=== PATIENT | female | born 1930 | race Caucasian/White ===

== ENCOUNTER 2020-09-17 16:17 | Inpatient (IN) | payer OTHER ==
[~2020-09-17] VITALS: Ht 167.6 cm; Wt 63.5 kg
[2020-09-17] MEDS ORDERED: AZITHROMYCIN IV 500 MG in IV DEXTROSE 5% 250 ML IV ONE (17:15)
[2020-09-17] MEDS ORDERED: CEFTRIAXONE 1 G in IV DEXTROSE 5% 50 ML IV ONE (17:15)
[2020-09-17] MEDS ORDERED: CEFTRIAXONE /D5W 50ML IVPB **ER PYXIS IV ONE (17:34)
[2020-09-17] MEDS ORDERED: AZITHROMYCIN 500MG/ D5W 250ML IVPB **ER PYXIS ONLY IV ONE (17:34)
[2020-09-17 17:36] LABS: BASOPHILS # (AUTO) 0.1 K/uL (0.0-8.0); BASOPHILS % (AUTO) 1.1 % (0.0-2.0); HEMOGLOBIN 12.3 g/dL (10.9-14.3); LYMPHOCYTES # (AUTO) 0.3 K/uL (20.0-40.0); MEAN CORPUSCULAR HEMOGLOBIN 27.9 uug (24.7-32.8); MEAN CORPUSCULAR HGB CONC 33 g/dL (32.3-35.6); MEAN CORPUSCULAR VOLUME 84.1 fL (75.5-95.3); MONOCYTES # (AUTO) 0.3 K/uL (2.0-10.0); MONOCYTES % (AUTO) 4.9 % (0.0-11.0); NEUTROPHILS # (AUTO) 4.7 K/uL (1.8-8.9); PLATELET COUNT (AUTO) 211 K/uL (179-408); WHITE BLOOD COUNT (AUTO) 5.3 K/uL (3.8-11.8)
[2020-09-17 17:39] LABS: CREATININE 0.9 mg/dL (0.6-1.3); POTASSIUM 4.4 mmol/L (3.5-5.1)
[2020-09-17 17:56] LABS: BILIRUBIN,TOTAL 0.3 mg/dL (0.2-1.0); TOTAL PROTEIN, SERUM 6.8 g/dL (6.4-8.2)
[2020-09-17] MEDS ORDERED: ENOXAPARIN SODIUM 30 MG/0.3 ML DISP.SYRIN SUBCUT ONE (18:15)
[2020-09-17] MEDS ORDERED: DEXAMETHASONE SOD PHOSPHATE 4 MG INJ IV ONE (18:15)
[2020-09-17] MEDS ORDERED: ENOXAPARIN SODIUM 40 MG/0.4 ML DISP.SYRIN SQ ONE ×2 (18:15→19:45)
[2020-09-17] MEDS ORDERED: ENOXAPARIN SODIUM 60 MG/0.6 ML DISP.SYRIN SQ ONE (18:24)
[2020-09-17] MEDS ORDERED: DEXAMETHASONE SOD PHOSPHATE 10 MG INJ ONE (18:28)
[2020-09-17] MEDS ORDERED: ACETAMINOPHEN 325 MG TABLET PO PRN (19:45)
[2020-09-17] MEDS: AZITHROMYCIN IV 500 MG in IV DEXTROSE 5% 250 ML IV SCH (19:45)
[2020-09-17] MEDS ORDERED: ONDANSETRON 4 MG/2 ML VIAL IV PRN (19:45)
[2020-09-17] MEDS ORDERED: ALBUTEROL SULFATE 2.5 MG/ 0.5 ML NEBU NEB PRN (19:45)
--- NOTE | 2020-09-17 21:40 | NUR ---
Pt pulled out her saline lock from L[facility], new saline started to RFA.
--- NOTE | 2020-09-17 23:48 | NUR ---
Patient transfered to 3rd floor Tele via gurny with no distress noted.
[2020-09-18] MEDS: ASCORBIC ACID 500 MG TABLET PO SCH ×3 (00:15→22:06)
--- NOTE | 2020-09-18 00:15 | NUR ---
Patient brought to tele via gurchristian from ER accompanied by staff nurse with d/x of covid.Patient alert x1. confused. Re-oriented to time ,place and unit.O2 at 4LPM via NC.Denies pain .No s/s of distress noted at this time. Iv on right forearm 22 g patent and intact.PAtient ambulates to bathroom with assist.Voided well. Placed on isolation .Call light with in reach. Safeyt measures in place.will continue to monitor.
[2020-09-18] MEDS: TEMAZEPAM 15 MG CAPSULE PO PRN (00:42)
[2020-09-18 01:22] VITALS: BP 154/85
[2020-09-18 06:22] VITALS: BP 140/65
[2020-09-18] MEDS: PANTOPRAZOLE SODIUM 40 MG TABLET.DR PO SCH (06:41)
[2020-09-18 07:07] LABS: BASOPHILS % (AUTO) 0.2 % (0.0-2.0); HEMATOCRIT 32.1 % (31.2-41.9); HEMOGLOBIN 10.7 g/dL (10.9-14.3); LYMPHOCYTES # (AUTO) 0.3 K/uL (20.0-40.0); LYMPHOCYTES % (AUTO) 16.1 % (20.5-51.5); MEAN CORPUSCULAR HEMOGLOBIN 28.3 uug (24.7-32.8); MEAN CORPUSCULAR HGB CONC 33 g/dL (32.3-35.6); MEAN CORPUSCULAR VOLUME 84.7 fL (75.5-95.3); MONOCYTES # (AUTO) 0.2 K/uL (2.0-10.0); MONOCYTES % (AUTO) 10.5 % (0.0-11.0); NEUTROPHILS # (AUTO) 1.4 K/uL (1.8-8.9); NEUTROPHILS % (AUTO) 73.2 % (38.5-71.5); PLATELET COUNT (AUTO) 207 K/uL (179-408)
[2020-09-18 07:26] LABS: THYROID STIMULATING HORMONE 0.25 mIU/mL (0.358-3.740)
[2020-09-18 07:48] LABS: BILIRUBIN,TOTAL 0.2 mg/dL (0.2-1.0); CREATININE 0.9 mg/dL (0.6-1.3); MAGNESIUM 1.8 mg/dL (1.8-2.4); PHOSPHOROUS 4.2 mg/dL (2.5-4.9); POTASSIUM 4.3 mmol/L (3.5-5.1); TOTAL PROTEIN, SERUM 6.7 g/dL (6.4-8.2)
[2020-09-18 08:26] LABS: WHITE BLOOD COUNT (AUTO) 1.9 K/uL (3.8-11.8)
[2020-09-18] MEDS: CHOLECALCIFEROL 1,000 UNIT TABLET PO SCH (08:51)
[2020-09-18] MEDS: DEXAMETHASONE SOD PHOSPHATE 4 MG INJ IV SCH (08:52)
[2020-09-18] MEDS ORDERED: ASPIRIN EC 325 MG TABLET.DR PO SCH (09:00)
[2020-09-18 12:00] VITALS: BP 137/72
--- NOTE | 2020-09-18 13:00 | NUR ---
SPOKE WITH DAUGHTER ESTRELLITA. RECEIVED LIST OF PATIENT'S HOME MEDICATION FROM DAUGHTER. NOTIFIED.
[2020-09-18] MEDS ORDERED: MIRT-119 PO (13:11)
[2020-09-18] MEDS ORDERED: POTA-10 PO (13:11)
[2020-09-18] MEDS ORDERED: MELA5TAB PO (13:11)
[2020-09-18] MEDS ORDERED: OMEP20CA15 PO (13:11)
[2020-09-18] MEDS ORDERED: ASPI81TA31 PO (13:11)
[2020-09-18] MEDS ORDERED: FLUD0.1T PO (13:11)
[2020-09-18] MEDS ORDERED: CARB-93 PO (13:11)
[2020-09-18] MEDS: ENOXAPARIN SODIUM 30 MG/0.3 ML DISP.SYRIN SUBCUT SCH (13:23)
[2020-09-18 16:00] VITALS: BP 128/47
[2020-09-18] MEDS: POTASSIUM CHLORIDE 10 MEQ TAB.PRT.SR PO SCH (16:35)
[2020-09-18] MEDS: CARBIDOPA/LEVODOPA 25-100MG TABLET PO SCH ×2 (16:35→22:06)
[2020-09-18] MEDS: CLOTRIMAZOLE 10 MG TROCHE MM SCH ×2 (18:01→21:00)
[2020-09-18] MEDS ORDERED: REMDESIVIR (CHARGED) 200 MG in IV NORMAL SALINE 210 ML IV ONE (18:30)
--- NOTE | 2020-09-18 19:30 | NUR ---
Pt received in bed, resting. Is confused but is able to be reoriented. Denies pain at this time. On 4L and denies SOB. No other issues or concerns at this time.
--- NOTE | 2020-09-18 19:38 | NUR ---
CALLED PHARMACY AT 1730 FOR 1830 REMDESIVIR, FOLLOWED UP AT 1830 - STILL NOT AVAILABLE. ENDORSED TO PM NURSE
[2020-09-18] MEDS: AZITHROMYCIN IV 500 MG in IV DEXTROSE 5% 250 ML IV SCH (19:45)
[2020-09-18 20:22] VITALS: BP 149/62
[2020-09-18] MEDS: MIRTAZAPINE 15 MG TABLET PO SCH (22:05)
[2020-09-18] MEDS: DOCUSATE SODIUM 100 MG CAPSULE PO SCH (22:05)
[2020-09-18] MEDS: FERROUS SULFATE 325 MG TABEC PO SCH (22:06)
[2020-09-18 22:30] LABS: LYMPHOCYTES % (MANUAL) 20 % (20-40); MONOCYTES % (MANUAL) 10 % (2-10); NEUTROPHILS % (MANUAL) 70 % (42-75)
[2020-09-19] MEDS: HYDROCODONE/APAP 5-325MG TABLET PO PRN ×2 (00:18→12:18)
[2020-09-19 01:05] VITALS: BP 140/68
[2020-09-19 04:40] VITALS: BP 148/61
[2020-09-19] MEDS: PANTOPRAZOLE SODIUM 40 MG TABLET.DR PO SCH (06:02)
--- NOTE | 2020-09-19 06:52 | NUR ---
Pt slept intermittently throughout the night. Denies pain or SOB at this time. On 4L NC sating at 96%. Is confused but able to be reoriented. Tolerated all medications given. No other needs or concerns at this time. Will endorse to day shift.
[2020-09-19] MEDS: FLUDROCORTISONE ACETATE 0.1 MG TABLET PO SCH (08:52)
[2020-09-19] MEDS: POTASSIUM CHLORIDE 10 MEQ TAB.PRT.SR PO SCH ×2 (08:53→17:07)
[2020-09-19] MEDS: CLOTRIMAZOLE 10 MG TROCHE MM SCH ×4 (08:53→21:49)
[2020-09-19] MEDS: ASPIRIN 81 MG TAB.CHEW PO SCH (08:53)
[2020-09-19] MEDS: CHOLECALCIFEROL 1,000 UNIT TABLET PO SCH (08:53)
[2020-09-19] MEDS: CARBIDOPA/LEVODOPA 25-100MG TABLET PO SCH ×4 (08:53→21:46)
[2020-09-19] MEDS: ASCORBIC ACID 500 MG TABLET PO SCH ×2 (08:53→21:45)
[2020-09-19] MEDS: FERROUS SULFATE 325 MG TABEC PO SCH ×2 (08:53→21:45)
[2020-09-19] MEDS: DEXAMETHASONE SOD PHOSPHATE 4 MG INJ IV SCH (08:53)
[2020-09-19] MEDS ORDERED: Medication Not On Formulary EA (Omeprazole 20 MG) PO SCH (09:00)
[2020-09-19 09:03] VITALS: BP 146/74
[2020-09-19 09:27] LABS: BASOPHILS % (AUTO) 0.1 % (0.0-2.0); HEMATOCRIT 33.8 % (31.2-41.9); HEMOGLOBIN 11.4 g/dL (10.9-14.3); LYMPHOCYTES # (AUTO) 0.7 K/uL (20.0-40.0); MEAN CORPUSCULAR HEMOGLOBIN 27.8 uug (24.7-32.8); MEAN CORPUSCULAR HGB CONC 34 g/dL (32.3-35.6); MEAN CORPUSCULAR VOLUME 82.2 fL (75.5-95.3); MONOCYTES # (AUTO) 0.7 K/uL (2.0-10.0); NEUTROPHILS # (AUTO) 4.7 K/uL (1.8-8.9); NEUTROPHILS % (AUTO) 76.9 % (38.5-71.5); PLATELET COUNT (AUTO) 269 K/uL (179-408); RED BLOOD CELL COUNT(AUTO) 4.11 MIL/uL (3.63-4.92); WHITE BLOOD COUNT (AUTO) 6.1 K/uL (3.8-11.8)
[2020-09-19 09:30] LABS: BILIRUBIN,DIRECT 0.1 mg/dL (0.0-0.2); BILIRUBIN,TOTAL 0.3 mg/dL (0.2-1.0); POTASSIUM 3.9 mmol/L (3.5-5.1); TOTAL PROTEIN, SERUM 6.9 g/dL (6.4-8.2)
[2020-09-19 11:59] VITALS: BP 114/56
[2020-09-19] MEDS: ENOXAPARIN SODIUM 30 MG/0.3 ML DISP.SYRIN SUBCUT SCH (12:18)
--- NOTE | 2020-09-19 12:30 | NUR ---
NOTED FACIAL GRIMACING AND PATIENT VERBALIZED THAT HER "SHOULDER HURTS." REPOSITIONED PATIENT AND FOLLOWED UP ON PATIENT PAIN. FACIAL GRIMACING STILL PRESENT AND WITHDRAWING FROM TOUCH. GIVEN PRN PAIN MEDICATION PRESCRIBED.
[2020-09-19 16:37] VITALS: BP 125/80
[2020-09-19] MEDS: REMDESIVIR (CHARGED) 100 MG in IV NORMAL SALINE 230 ML IV SCH (17:48)
--- NOTE | 2020-09-19 18:23 | NUR ---
PATIENT TOLERATING REMDESIVIR. BP 129/76, HR 83. WILL CONTINUE TO MONITOR. NO S/S OF SOB NOTED AT THIS TIME.
[2020-09-19] MEDS: CEFTRIAXONE 1 G in IV DEXTROSE 5% 50 ML IV SCH (19:18)
[2020-09-19 20:00] VITALS: BP 122/83
--- NOTE | 2020-09-19 20:00 | NUR ---
NSG: Received patient lying in bed, resting. patient is confused reoriented provided. Denies pain at this time. On 4L/min and denies SOB. call light w/in reach.
[2020-09-19] MEDS: AZITHROMYCIN IV 500 MG in IV DEXTROSE 5% 250 ML IV SCH (20:54)
[2020-09-19] MEDS: DOCUSATE SODIUM 100 MG CAPSULE PO SCH (21:45)
[2020-09-19] MEDS: MIRTAZAPINE 15 MG TABLET PO SCH (21:50)
[2020-09-20] VITALS: BP 148/70
--- NOTE | 2020-09-20 02:48 | NUR ---
patient converted to a-fib heart rate 110 to 120. METER READER CHIEF QUIRINO MEDINA MADE AWARE. no new order received.
[2020-09-20] MEDS: HYDROCODONE/APAP 5-325MG TABLET PO PRN ×3 (03:26→16:54)
[2020-09-20 04:00] VITALS: BP 144/81
--- NOTE | 2020-09-20 04:37 | NUR ---
patient is still on controlled A-FIB. heart rate 77 to 80. no s/s of distress noted.
--- NOTE | 2020-09-20 05:12 | NUR ---
NSG: Patient resting in bed comfortably. no s/s of distress noted.
[2020-09-20] MEDS: PANTOPRAZOLE SODIUM 40 MG TABLET.DR PO SCH (06:07)
[2020-09-20] MEDS: CARBIDOPA/LEVODOPA 25-100MG TABLET PO SCH ×4 (08:25→20:36)
[2020-09-20] MEDS: ASPIRIN 81 MG TAB.CHEW PO SCH (08:25)
[2020-09-20] MEDS: DEXAMETHASONE SOD PHOSPHATE 4 MG INJ IV SCH (08:25)
[2020-09-20] MEDS: CHOLECALCIFEROL 1,000 UNIT TABLET PO SCH (08:25)
[2020-09-20] MEDS: ASCORBIC ACID 500 MG TABLET PO SCH ×2 (08:25→20:36)
[2020-09-20] MEDS: FERROUS SULFATE 325 MG TABEC PO SCH ×2 (08:25→20:36)
[2020-09-20] MEDS: FLUDROCORTISONE ACETATE 0.1 MG TABLET PO SCH (08:26)
[2020-09-20] MEDS: POTASSIUM CHLORIDE 10 MEQ TAB.PRT.SR PO SCH ×2 (08:26→16:53)
[2020-09-20] MEDS: CLOTRIMAZOLE 10 MG TROCHE MM SCH ×4 (08:27→20:37)
[2020-09-20 08:42] LABS: BILIRUBIN,DIRECT 0.1 mg/dL (0.0-0.2); BILIRUBIN,TOTAL 0.3 mg/dL (0.2-1.0); TOTAL PROTEIN, SERUM 7.1 g/dL (6.4-8.2)
[2020-09-20 11:27] VITALS: BP 164/94
[2020-09-20] MEDS: ENOXAPARIN SODIUM 30 MG/0.3 ML DISP.SYRIN SUBCUT SCH (12:20)
[2020-09-20 13:22] LABS: CREATININE 0.8 mg/dL (0.6-1.3); POTASSIUM 3.5 mmol/L (3.5-5.1)
[2020-09-20] MEDS: LORAZEPAM 2 MG/1 ML VIAL IV PRN (13:28)
[2020-09-20 13:42] LABS: BASOPHILS % (AUTO) 0.1 % (0.0-2.0); HEMATOCRIT 38.5 % (31.2-41.9); HEMOGLOBIN 12.5 g/dL (10.9-14.3); LYMPHOCYTES # (AUTO) 0.8 K/uL (20.0-40.0); LYMPHOCYTES % (AUTO) 15.1 % (20.5-51.5); MEAN CORPUSCULAR HEMOGLOBIN 27.4 uug (24.7-32.8); MEAN CORPUSCULAR HGB CONC 33 g/dL (32.3-35.6); MEAN CORPUSCULAR VOLUME 84.4 fL (75.5-95.3); MONOCYTES # (AUTO) 0.9 K/uL (2.0-10.0); MONOCYTES % (AUTO) 17.6 % (0.0-11.0); NEUTROPHILS # (AUTO) 3.4 K/uL (1.8-8.9); NEUTROPHILS % (AUTO) 67.2 % (38.5-71.5); PLATELET COUNT (AUTO) 304 K/uL (179-408); RED BLOOD CELL COUNT(AUTO) 4.56 MIL/uL (3.63-4.92)
[2020-09-20 16:00] VITALS: BP 112/69
[2020-09-20] MEDS: CEFTRIAXONE 1 G in IV DEXTROSE 5% 50 ML IV SCH (16:09)
[2020-09-20] MEDS: AZITHROMYCIN IV 500 MG in IV DEXTROSE 5% 250 ML IV SCH (16:10)
[2020-09-20 18:17] LABS: LYMPHOCYTES % (MANUAL) 14 % (20-40); MONOCYTES % (MANUAL) 17 % (2-10); NEUTROPHILS % (MANUAL) 69 % (42-75)
[2020-09-20 20:00] VITALS: BP 111/71
[2020-09-20] MEDS: REMDESIVIR (CHARGED) 100 MG in IV NORMAL SALINE 230 ML IV SCH (20:36)
[2020-09-20] MEDS: DOCUSATE SODIUM 100 MG CAPSULE PO SCH (20:37)
[2020-09-20] MEDS: MIRTAZAPINE 15 MG TABLET PO SCH (20:37)
--- NOTE | 2020-09-20 21:00 | NUR ---
Received patient sleeping. patient is very confused, needs reorientation. Denies any pain at this time. On 3L/min and no SOB noted. All due medication administered and tolerated well. Spoke to daughter Patti, pdated on pt status. Safety measure in place. Will continue to monitor. Call light w/in reach.
[2020-09-21 00:44] VITALS: BP 119/87
[2020-09-21 04:00] VITALS: BP 129/72
[2020-09-21] MEDS: PANTOPRAZOLE SODIUM 40 MG TABLET.DR PO SCH (05:38)
--- NOTE | 2020-09-21 06:50 | NUR ---
pt increasing agitated this morning keeps removing clothing and Leads. Needs reorientation. Kept comfortable repositioned and noticeable calmer. will endorse to oncoming nurse.
[2020-09-21 08:06] LABS: BASOPHILS % (AUTO) 0.1 % (0.0-2.0); HEMATOCRIT 38.3 % (31.2-41.9); HEMOGLOBIN 13.4 g/dL (10.9-14.3); LYMPHOCYTES # (AUTO) 0.8 K/uL (20.0-40.0); LYMPHOCYTES % (AUTO) 20.1 % (20.5-51.5); MEAN CORPUSCULAR HEMOGLOBIN 29.1 uug (24.7-32.8); MEAN CORPUSCULAR HGB CONC 35 g/dL (32.3-35.6); MONOCYTES # (AUTO) 0.8 K/uL (2.0-10.0); MONOCYTES % (AUTO) 19.2 % (0.0-11.0); NEUTROPHILS # (AUTO) 2.5 K/uL (1.8-8.9); NEUTROPHILS % (AUTO) 60.6 % (38.5-71.5); PLATELET COUNT (AUTO) 346 K/uL (179-408); RED BLOOD CELL COUNT(AUTO) 4.61 MIL/uL (3.63-4.92); WHITE BLOOD COUNT (AUTO) 4.2 K/uL (3.8-11.8)
[2020-09-21 08:07] LABS: BILIRUBIN,DIRECT 0.1 mg/dL (0.0-0.2); BILIRUBIN,TOTAL 0.3 mg/dL (0.2-1.0); CREATININE 0.9 mg/dL (0.6-1.3); MAGNESIUM 1.7 mg/dL (1.8-2.4); PHOSPHOROUS 2.4 mg/dL (2.5-4.9); POTASSIUM 3.3 mmol/L (3.5-5.1)
[2020-09-21] MEDS: DEXAMETHASONE SOD PHOSPHATE 4 MG INJ IV SCH (10:07)
[2020-09-21] MEDS: ASCORBIC ACID 500 MG TABLET PO SCH ×2 (10:09→20:42)
[2020-09-21] MEDS: CHOLECALCIFEROL 1,000 UNIT TABLET PO SCH (10:09)
[2020-09-21] MEDS: ASPIRIN 81 MG TAB.CHEW PO SCH (10:10)
[2020-09-21] MEDS: FLUDROCORTISONE ACETATE 0.1 MG TABLET PO SCH (10:10)
[2020-09-21] MEDS: FERROUS SULFATE 325 MG TABEC PO SCH ×2 (10:10→20:41)
[2020-09-21] MEDS: POTASSIUM CHLORIDE 10 MEQ TAB.PRT.SR PO SCH ×2 (10:10→18:15)
[2020-09-21] MEDS: CARBIDOPA/LEVODOPA 25-100MG TABLET PO SCH ×4 (10:10→20:41)
[2020-09-21] MEDS: CLOTRIMAZOLE 10 MG TROCHE MM SCH ×4 (10:12→20:45)
[2020-09-21] MEDS ORDERED: POTASSIUM CHLORIDE 20 MEQ TAB.PRT.SR PO ONE (11:00)
[2020-09-21 11:55] VITALS: BP 139/71
[2020-09-21] MEDS ORDERED: NEUTRA PHOS PACKET PO ONE (12:00)
[2020-09-21] MEDS: LORAZEPAM 2 MG/1 ML VIAL IV PRN ×2 (13:33→13:36)
[2020-09-21] MEDS: ENOXAPARIN SODIUM 30 MG/0.3 ML DISP.SYRIN SUBCUT SCH (13:47)
[2020-09-21] MEDS: MAGNESIUM SULFATE/D5W 100 ML IV SCH ×2 (13:48→15:07)
[2020-09-21 14:43] LABS: LYMPHOCYTES % (MANUAL) 20 % (20-40); MONOCYTES % (MANUAL) 19 % (2-10); NEUTROPHILS % (MANUAL) 61 % (42-75)
[2020-09-21] MEDS: HYDROCODONE/APAP 5-325MG TABLET PO PRN (14:53)
[2020-09-21 15:47] VITALS: BP 106/75
[2020-09-21] MEDS: AZITHROMYCIN IV 500 MG in IV DEXTROSE 5% 250 ML IV SCH (17:52)
[2020-09-21] MEDS: CEFTRIAXONE 1 G in IV DEXTROSE 5% 50 ML IV SCH (17:52)
[2020-09-21 20:18] VITALS: BP 141/86
[2020-09-21] MEDS: REMDESIVIR (CHARGED) 100 MG in IV NORMAL SALINE 230 ML IV SCH (20:41)
[2020-09-21] MEDS: MIRTAZAPINE 15 MG TABLET PO SCH (20:42)
[2020-09-21] MEDS: DOCUSATE SODIUM 100 MG CAPSULE PO SCH (20:42)
[2020-09-21] MEDS: TEMAZEPAM 15 MG CAPSULE PO PRN (22:21)
--- NOTE | 2020-09-21 23:33 | NUR ---
Restoril effective, pt sleeping, no distress noted. Will continue to monitor.
--- NOTE | 2020-09-21 23:34 | NUR ---
Received patient lying in bed awake, agitation noted. Axox2 confused, needs reorientation., talking to her self. Denies any pain at this time. On 3L/min and no SOB noted. All due medication administered and tolerated well. Administered Restoril to help pt sleep. Spoke to family, updated on pt status. Safety measure in place. All need attended too, kept clean, dry and comfortable. Will continue to monitor. Call light within reach. Addendum: 09/21/20 at 4327 by NYLA MATTHEWS RN RN [id number]
[2020-09-22] VITALS (8 sets, daily range): BP systolic 96–158; BP diastolic 51–99
[2020-09-22] MEDS: PANTOPRAZOLE SODIUM 40 MG TABLET.DR PO SCH (06:48)
[2020-09-22 07:14] LABS: BILIRUBIN,DIRECT 0.1 mg/dL (0.0-0.2); BILIRUBIN,TOTAL 0.3 mg/dL (0.2-1.0); CREATININE 0.8 mg/dL (0.6-1.3); MAGNESIUM 1.9 mg/dL (1.8-2.4); PHOSPHOROUS 2.5 mg/dL (2.5-4.9); POTASSIUM 3.3 mmol/L (3.5-5.1); TOTAL PROTEIN, SERUM 7.1 g/dL (6.4-8.2)
[2020-09-22] MEDS: CARBIDOPA/LEVODOPA 25-100MG TABLET PO SCH ×4 (08:51→21:36)
[2020-09-22] MEDS: ASPIRIN 81 MG TAB.CHEW PO SCH (08:51)
[2020-09-22] MEDS: FLUDROCORTISONE ACETATE 0.1 MG TABLET PO SCH (08:51)
[2020-09-22] MEDS: FERROUS SULFATE 325 MG TABEC PO SCH ×2 (08:51→21:14)
[2020-09-22] MEDS: POTASSIUM CHLORIDE 10 MEQ TAB.PRT.SR PO SCH ×2 (08:51→16:50)
[2020-09-22] MEDS: ASCORBIC ACID 500 MG TABLET PO SCH ×2 (08:51→21:14)
[2020-09-22] MEDS: CLOTRIMAZOLE 10 MG TROCHE MM SCH ×4 (08:51→21:14)
[2020-09-22] MEDS: DEXAMETHASONE SOD PHOSPHATE 4 MG INJ IV SCH (08:52)
[2020-09-22] MEDS: CHOLECALCIFEROL 1,000 UNIT TABLET PO SCH (09:37)
[2020-09-22] MEDS: hydrALAZINE HCL 25 MG TABLET PO PRN (09:38)
[2020-09-22 10:25] LABS: BASOPHILS % (AUTO) 0.1 % (0.0-2.0); HEMATOCRIT 38.8 % (31.2-41.9); LYMPHOCYTES # (AUTO) 0.7 K/uL (20.0-40.0); MEAN CORPUSCULAR HGB CONC 34 g/dL (32.3-35.6); MEAN CORPUSCULAR VOLUME 83.4 fL (75.5-95.3); MONOCYTES # (AUTO) 0.6 K/uL (2.0-10.0); NEUTROPHILS # (AUTO) 3.1 K/uL (1.8-8.9); NEUTROPHILS % (AUTO) 69.9 % (38.5-71.5); PLATELET COUNT (AUTO) 367 K/uL (179-408); RED BLOOD CELL COUNT(AUTO) 4.65 MIL/uL (3.63-4.92); WHITE BLOOD COUNT (AUTO) 4.5 K/uL (3.8-11.8)
[2020-09-22] MEDS ORDERED: POTASSIUM CHLORIDE 10 MEQ TAB.PRT.SR PO ONE (11:00)
[2020-09-22] MEDS: ENOXAPARIN SODIUM 30 MG/0.3 ML DISP.SYRIN SUBCUT SCH (12:56)
[2020-09-22] MEDS: REMDESIVIR (CHARGED) 100 MG in IV NORMAL SALINE 230 ML IV SCH (18:09)
--- NOTE | 2020-09-22 20:22 | NUR ---
Patient in bed awake, confused, on 3L NC, no SOB or distress at this time. On tele denies chest pain. Applied soft wrist restraints, patient pulling lines and telemetry box. Kept trying to get out of bed. Spoke with daughter Patti and informed PM shift nurse regarding possible zoom call with daughter. Aspiration and safety precaution in place.
[2020-09-22] MEDS: CEFTRIAXONE 1 G in IV DEXTROSE 5% 50 ML IV SCH (20:56)
[2020-09-22] MEDS: METOPROLOL TARTRATE 25 MG TABLET PO SCH (21:14)
[2020-09-22] MEDS: MIRTAZAPINE 15 MG TABLET PO SCH (21:14)
[2020-09-22] MEDS: DOCUSATE SODIUM 100 MG CAPSULE PO SCH (21:14)
--- NOTE | 2020-09-22 23:45 | NUR ---
Received pt resting in bed. Pt noted to be confused. On 3L O2 via NC. No acute distress noted. Due med given as ordered. IV site intact. Soft wrist restraints in place for pulling out lines, frequent roundings, interventions provided. Snacks given. Safety measures maintained. Call light within reach. Will continue to monitor.
[2020-09-23 00:15] VITALS: BP 164/104
[2020-09-23] MEDS: HYDROCODONE/APAP 5-325MG TABLET PO PRN ×2 (00:53→10:00)
[2020-09-23] MEDS: hydrALAZINE HCL 25 MG TABLET PO PRN (00:54)
[2020-09-23 04:21] VITALS: BP 140/95
[2020-09-23] MEDS: PANTOPRAZOLE SODIUM 40 MG TABLET.DR PO SCH (06:17)
[2020-09-23 06:29] LABS: BASOPHILS % (AUTO) 0.1 % (0.0-2.0); HEMATOCRIT 33.2 % (31.2-41.9); HEMOGLOBIN 11.5 g/dL (10.9-14.3); LYMPHOCYTES % (AUTO) 22.9 % (20.5-51.5); MEAN CORPUSCULAR HEMOGLOBIN 28.7 uug (24.7-32.8); MEAN CORPUSCULAR HGB CONC 35 g/dL (32.3-35.6); MEAN CORPUSCULAR VOLUME 82.6 fL (75.5-95.3); MONOCYTES # (AUTO) 0.7 K/uL (2.0-10.0); NEUTROPHILS # (AUTO) 2.8 K/uL (1.8-8.9); PLATELET COUNT (AUTO) 340 K/uL (179-408); RED BLOOD CELL COUNT(AUTO) 4.02 MIL/uL (3.63-4.92); WHITE BLOOD COUNT (AUTO) 4.5 K/uL (3.8-11.8)
[2020-09-23 06:47] LABS: BILIRUBIN,TOTAL 0.3 mg/dL (0.2-1.0); CREATININE 0.8 mg/dL (0.6-1.3); MAGNESIUM 1.7 mg/dL (1.8-2.4); PHOSPHOROUS 2.8 mg/dL (2.5-4.9); POTASSIUM 3.7 mmol/L (3.5-5.1); TOTAL PROTEIN, SERUM 5.9 g/dL (6.4-8.2)
--- NOTE | 2020-09-23 07:30 | NUR ---
Received patient resting in bed. Patient is confused. No sign of distress noted. Patient is on 3L of oxygen. Safety precautions are in place. Will continue to monitor.
[2020-09-23] MEDS ORDERED: MAGNESIUM SULFATE/D5W 100 ML IV SCH (09:45)
[2020-09-23] MEDS: ASPIRIN 81 MG TAB.CHEW PO SCH (09:59)
[2020-09-23] MEDS: FERROUS SULFATE 325 MG TABEC PO SCH ×2 (09:59→20:36)
[2020-09-23] MEDS: DEXAMETHASONE SOD PHOSPHATE 4 MG INJ IV SCH (09:59)
[2020-09-23] MEDS: POTASSIUM CHLORIDE 10 MEQ TAB.PRT.SR PO SCH ×2 (10:00→17:43)
[2020-09-23] MEDS: FLUDROCORTISONE ACETATE 0.1 MG TABLET PO SCH (10:00)
[2020-09-23] MEDS: ASCORBIC ACID 500 MG TABLET PO SCH ×2 (10:01→20:38)
[2020-09-23] MEDS: CHOLECALCIFEROL 1,000 UNIT TABLET PO SCH (10:01)
[2020-09-23] MEDS: CARBIDOPA/LEVODOPA 25-100MG TABLET PO SCH ×4 (10:01→20:38)
[2020-09-23] MEDS: CLOTRIMAZOLE 10 MG TROCHE MM SCH ×4 (10:02→20:40)
[2020-09-23] MEDS: METOPROLOL TARTRATE 25 MG TABLET PO SCH ×2 (10:04→20:37)
[2020-09-23 12:00] VITALS: BP 140/72
[2020-09-23] MEDS: ENOXAPARIN SODIUM 30 MG/0.3 ML DISP.SYRIN SUBCUT SCH (12:30)
[2020-09-23] MEDS ORDERED: BISACODYL 10 MG SUPP.RECT RC PRN (15:00)
[2020-09-23 15:58] VITALS: BP 129/73
[2020-09-23 17:20] LABS: LYMPHOCYTES % (MANUAL) 25 % (20-40); MONOCYTES % (MANUAL) 15 % (2-10); NEUTROPHILS % (MANUAL) 60 % (42-75)
--- NOTE | 2020-09-23 18:57 | NUR ---
Patient is resting in bed . No sign of distress noted. Patient is still confused and is dozing off intermittently but is easily aroused. Gave all medications as ordered. Safety precautions in place with call light and belongings within reach. Will endorse to oncoming nurse
[2020-09-23 20:27] VITALS: BP 149/98
[2020-09-23] MEDS: DOCUSATE SODIUM 100 MG CAPSULE PO SCH (20:35)
[2020-09-23] MEDS: MIRTAZAPINE 15 MG TABLET PO SCH (20:38)
[2020-09-24 00:18] VITALS: BP 134/63
--- NOTE | 2020-09-24 00:36 | NUR ---
Received pt resting in bed. Pt noted to be confused. On 3L O2 via NC, no acute distress noted. Jeremías Alegria 0/10. Due meds given as ordered, tolerated well. Isolation precaution for covid-19. Safety measures maintained. Call light and personal items within reach. Will continue to monitor.
[2020-09-24] MEDS: TEMAZEPAM 15 MG CAPSULE PO PRN (00:52)
[2020-09-24 04:24] VITALS: BP 133/59
[2020-09-24] MEDS: PANTOPRAZOLE SODIUM 40 MG TABLET.DR PO SCH (06:02)
--- NOTE | 2020-09-24 06:40 | NUR ---
Dulcolax suppository given for constipation.
[2020-09-24] MEDS: CARBIDOPA/LEVODOPA 25-100MG TABLET PO SCH ×4 (09:24→21:52)
[2020-09-24] MEDS: ASPIRIN 81 MG TAB.CHEW PO SCH (09:24)
[2020-09-24] MEDS: CHOLECALCIFEROL 1,000 UNIT TABLET PO SCH (09:25)
[2020-09-24] MEDS: FLUDROCORTISONE ACETATE 0.1 MG TABLET PO SCH (09:25)
[2020-09-24] MEDS: ASCORBIC ACID 500 MG TABLET PO SCH ×2 (09:25→21:52)
[2020-09-24] MEDS: DEXAMETHASONE SOD PHOSPHATE 4 MG INJ IV SCH (09:25)
[2020-09-24] MEDS: FERROUS SULFATE 300 MG/5 ML LIQUID UDC PO SCH ×2 (10:58→21:52)
[2020-09-24] MEDS: POTASSIUM CHLORIDE 20 MEQ POWDER PACKET PO SCH ×2 (10:58→16:51)
[2020-09-24] MEDS: METOPROLOL TARTRATE 25 MG TABLET PO SCH ×2 (10:59→21:59)
[2020-09-24] MEDS: CLOTRIMAZOLE 10 MG TROCHE MM SCH ×4 (11:18→21:52)
[2020-09-24 12:00] VITALS: BP 131/77
[2020-09-24] MEDS: ENOXAPARIN SODIUM 30 MG/0.3 ML DISP.SYRIN SUBCUT SCH (13:59)
[2020-09-24 16:03] VITALS: BP 99/65
[2020-09-24 19:50] VITALS: BP 155/84
[2020-09-24] MEDS: MIRTAZAPINE 15 MG TABLET PO SCH (21:52)
[2020-09-24] MEDS: DOCUSATE SODIUM 100 MG CAPSULE PO SCH (21:52)
[2020-09-25] MEDS: PANTOPRAZOLE SODIUM 40 MG TABLET.DR PO SCH (06:30)
[2020-09-25 06:57] VITALS: BP 139/78
--- NOTE | 2020-09-25 07:00 | NUR ---
Pt remained stable throughout the shift. No s/s of acute distress or pain noted at this time. V/S stable on 3L NC, tolerating well. Comfort care and needs attended. Repositioned for comfort. Isolation and aspiration precaution maintained. Safety measures in place. Bed low and locked in position. Will endorse to oncoming nurse accordingly.
[2020-09-25] MEDS: CHOLECALCIFEROL 1,000 UNIT TABLET PO SCH (08:47)
[2020-09-25] MEDS: ASPIRIN 81 MG TAB.CHEW PO SCH (08:47)
[2020-09-25] MEDS: ASCORBIC ACID 500 MG TABLET PO SCH (08:48)
[2020-09-25] MEDS: CARBIDOPA/LEVODOPA 25-100MG TABLET PO SCH ×4 (08:48→21:49)
[2020-09-25] MEDS: FLUDROCORTISONE ACETATE 0.1 MG TABLET PO SCH (08:48)
[2020-09-25] MEDS: FERROUS SULFATE 300 MG/5 ML LIQUID UDC PO SCH (08:49)
[2020-09-25] MEDS: POTASSIUM CHLORIDE 20 MEQ POWDER PACKET PO SCH ×2 (08:49→17:22)
[2020-09-25] MEDS: CLOTRIMAZOLE 10 MG TROCHE MM SCH ×4 (08:49→21:50)
[2020-09-25] MEDS: DEXAMETHASONE SOD PHOSPHATE 4 MG INJ IV SCH (08:50)
[2020-09-25] MEDS: MIRALAX 17 GM POWD.PACK PO SCH (08:52)
[2020-09-25] MEDS: METOPROLOL TARTRATE 25 MG TABLET PO SCH ×2 (08:52→21:49)
[2020-09-25] MEDS: PROTEIN SUPPLEMENT (PROSTAT) 30 ML LIQUID PO SCH (08:56)
[2020-09-25 09:30] VITALS: BP 152/92
[2020-09-25 12:34] VITALS: BP 148/73
[2020-09-25] MEDS: ENOXAPARIN SODIUM 30 MG/0.3 ML DISP.SYRIN SUBCUT SCH (13:35)
[2020-09-25 15:41] VITALS: BP 133/81
--- NOTE | 2020-09-25 18:57 | NUR ---
Patient is alert and oriented to name only. Respirations are even and unlabored. She is in no acute distress at this time. Patient is resting quietly and comfortably in bed, bed is in low and locked position with head of bed elevated. Patient is adherent with medications with prompting, no adverse reaction noted. Patient has soft-restraints placed, skin is intact. Patient is able to follow command and redirection. Patient provided with reality orientation. Patient turned and repositioned every 2 hours. Patient kept clean and comfortable.
[2020-09-25 20:00] VITALS: BP 137/86
[2020-09-25] MEDS: MIRTAZAPINE 15 MG TABLET PO SCH (21:48)
[2020-09-25] MEDS: DOCUSATE SODIUM 100 MG CAPSULE PO SCH (21:48)
[2020-09-26 04:00] VITALS: BP_SYST 140; BP_SYST 149; BP_DIAS 52; BP_DIAS 96
[2020-09-26] MEDS: PANTOPRAZOLE SODIUM 40 MG TABLET.DR PO SCH (06:59)
[2020-09-26] MEDS: METOPROLOL TARTRATE 25 MG TABLET PO SCH (09:44)
[2020-09-26] MEDS: DEXAMETHASONE SOD PHOSPHATE 4 MG INJ IV SCH (09:45)
[2020-09-26] MEDS: CARBIDOPA/LEVODOPA 25-100MG TABLET PO SCH ×4 (09:45→23:18)
[2020-09-26] MEDS: CHOLECALCIFEROL 1,000 UNIT TABLET PO SCH (09:45)
[2020-09-26] MEDS: CLOTRIMAZOLE 10 MG TROCHE MM SCH ×4 (09:45→23:13)
[2020-09-26] MEDS: MIRALAX 17 GM POWD.PACK PO SCH (09:46)
[2020-09-26] MEDS: FLUDROCORTISONE ACETATE 0.1 MG TABLET PO SCH (09:46)
[2020-09-26] MEDS: PROTEIN SUPPLEMENT (PROSTAT) 30 ML LIQUID PO SCH (09:46)
[2020-09-26] MEDS: ASPIRIN 81 MG TAB.CHEW PO SCH (09:46)
[2020-09-26] MEDS: POTASSIUM CHLORIDE 20 MEQ POWDER PACKET PO SCH ×2 (09:47→18:27)
[2020-09-26 10:38] LABS: BILIRUBIN,TOTAL 0.7 mg/dL (0.2-1.0); CREATININE 0.9 mg/dL (0.6-1.3); MAGNESIUM 1.7 mg/dL (1.8-2.4); PHOSPHOROUS 2.7 mg/dL (2.5-4.9); POTASSIUM 3.1 mmol/L (3.5-5.1); TOTAL PROTEIN, SERUM 6.5 g/dL (6.4-8.2)
[2020-09-26 10:39] LABS: BASOPHILS % (AUTO) 0.1 % (0.0-2.0); EOSINOPHILS % (AUTO) 0.1 % (0.0-7.0); HEMATOCRIT 36.2 % (31.2-41.9); HEMOGLOBIN 12.4 g/dL (10.9-14.3); LYMPHOCYTES # (AUTO) 1.2 K/uL (20.0-40.0); LYMPHOCYTES % (AUTO) 17.5 % (20.5-51.5); MEAN CORPUSCULAR HEMOGLOBIN 28.3 uug (24.7-32.8); MEAN CORPUSCULAR HGB CONC 34 g/dL (32.3-35.6); MEAN CORPUSCULAR VOLUME 82.7 fL (75.5-95.3); MONOCYTES # (AUTO) 0.8 K/uL (2.0-10.0); MONOCYTES % (AUTO) 12.1 % (0.0-11.0); NEUTROPHILS # (AUTO) 4.7 K/uL (1.8-8.9); NEUTROPHILS % (AUTO) 70.2 % (38.5-71.5); PLATELET COUNT (AUTO) 374 K/uL (179-408); RED BLOOD CELL COUNT(AUTO) 4.38 MIL/uL (3.63-4.92); WHITE BLOOD COUNT (AUTO) 6.7 K/uL (3.8-11.8)
[2020-09-26 11:57] VITALS: BP 143/88
[2020-09-26] MEDS: ENOXAPARIN SODIUM 30 MG/0.3 ML DISP.SYRIN SUBCUT SCH (13:00)
[2020-09-26 15:53] VITALS: BP_SYST 107; BP_SYST 119; BP_DIAS 50; BP_DIAS 66
--- NOTE | 2020-09-26 18:30 | NUR ---
1300 and 1700 dose not administered dose given now for carbidopa and mycelex
[2020-09-26] MEDS ORDERED: POTASSIUM CHLORIDE 20 MEQ TAB.PRT.SR PO ONE (18:45)
[2020-09-26] MEDS: MAGNESIUM SULFATE/D5W 100 ML IV SCH (19:45)
[2020-09-26 20:00] VITALS: BP 147/117
[2020-09-26] MEDS: DOCUSATE SODIUM 100 MG CAPSULE PO SCH (23:13)
[2020-09-26] MEDS: MIRTAZAPINE 15 MG TABLET PO SCH (23:16)
[2020-09-27] MEDS: METOPROLOL TARTRATE 25 MG TABLET PO SCH ×3 (00:37→21:02)
[2020-09-27] MEDS: MAGNESIUM SULFATE/D5W 100 ML IV SCH (00:50)
[2020-09-27 00:54] VITALS: BP 148/96
[2020-09-27 04:00] VITALS: BP 167/93
--- NOTE | 2020-09-27 05:00 | NUR ---
Patient on oxygen 2L/min via nasal cannula with oxygen saturation of 98%, all medication administered, no medication reactions noted. Patient cooperative with care, denies any pain, stable the whole shift. continue to monitor.
[2020-09-27] MEDS: PANTOPRAZOLE SODIUM 40 MG TABLET.DR PO SCH (06:25)
[2020-09-27 07:26] LABS: BASOPHILS % (AUTO) 0.1 % (0.0-2.0); EOSINOPHILS % (AUTO) 0.1 % (0.0-7.0); HEMATOCRIT 37.4 % (31.2-41.9); HEMOGLOBIN 12.4 g/dL (10.9-14.3); LYMPHOCYTES % (AUTO) 22.2 % (20.5-51.5); MEAN CORPUSCULAR HEMOGLOBIN 27.8 uug (24.7-32.8); MEAN CORPUSCULAR HGB CONC 33 g/dL (32.3-35.6); MEAN CORPUSCULAR VOLUME 83.6 fL (75.5-95.3); MONOCYTES # (AUTO) 0.6 K/uL (2.0-10.0); MONOCYTES % (AUTO) 13.9 % (0.0-11.0); NEUTROPHILS # (AUTO) 2.9 K/uL (1.8-8.9); NEUTROPHILS % (AUTO) 63.7 % (38.5-71.5); PLATELET COUNT (AUTO) 312 K/uL (179-408); RED BLOOD CELL COUNT(AUTO) 4.47 MIL/uL (3.63-4.92); WHITE BLOOD COUNT (AUTO) 4.6 K/uL (3.8-11.8)
[2020-09-27 07:59] LABS: CREATININE 0.7 mg/dL (0.6-1.3); MAGNESIUM 3.2 mg/dL (1.8-2.4); PHOSPHOROUS 2.3 mg/dL (2.5-4.9); POTASSIUM 3.7 mmol/L (3.5-5.1)
[2020-09-27] MEDS ORDERED: POTASSIUM PHOSPHATE MM 7.5 MMOL in IV NORMAL SALINE 97.5 ML IV ONE (10:30)
[2020-09-27 12:25] VITALS: BP 102/69
[2020-09-27] MEDS: ASPIRIN 81 MG TAB.CHEW PO SCH (13:19)
[2020-09-27] MEDS: CLOTRIMAZOLE 10 MG TROCHE MM SCH ×4 (13:23→21:01)
[2020-09-27] MEDS: POTASSIUM CHLORIDE 20 MEQ POWDER PACKET PO SCH ×2 (13:24→18:08)
[2020-09-27] MEDS: CARBIDOPA/LEVODOPA 25-100MG TABLET PO SCH ×4 (13:24→21:01)
[2020-09-27] MEDS: CHOLECALCIFEROL 1,000 UNIT TABLET PO SCH (13:24)
[2020-09-27] MEDS: FLUDROCORTISONE ACETATE 0.1 MG TABLET PO SCH (13:25)
[2020-09-27] MEDS: MIRALAX 17 GM POWD.PACK PO SCH (13:26)
[2020-09-27] MEDS: PROTEIN SUPPLEMENT (PROSTAT) 30 ML LIQUID PO SCH (13:27)
[2020-09-27] MEDS: LORAZEPAM 2 MG/1 ML VIAL IV PRN (14:31)
[2020-09-27 16:22] VITALS: BP 178/81
[2020-09-27 20:41] VITALS: BP 134/65
[2020-09-27] MEDS: DOCUSATE SODIUM 100 MG CAPSULE PO SCH (21:01)
[2020-09-27] MEDS: MIRTAZAPINE 15 MG TABLET PO SCH (21:02)
[2020-09-28 04:43] VITALS: BP 125/62
[2020-09-28] MEDS: PANTOPRAZOLE SODIUM 40 MG TABLET.DR PO SCH (06:08)
--- NOTE | 2020-09-28 06:49 | NUR ---
Patient slept through out the night continuos on O2 at 2LPM via NC saturating at 98 %.No s/s of distress noted.Compliant with medication. IV infiltrated on right forearm . Inserted new Iv on left hand using 22g with good blood return .Tolerated well.Continue on isolation for covid. Will endorse to oncoming shift.
[2020-09-28 08:00] VITALS: BP 117/78
[2020-09-28] MEDS: MIRALAX 17 GM POWD.PACK PO SCH (09:37)
[2020-09-28] MEDS: METOPROLOL TARTRATE 25 MG TABLET PO SCH (09:38)
[2020-09-28] MEDS: ASPIRIN 81 MG TAB.CHEW PO SCH (09:38)
[2020-09-28] MEDS: POTASSIUM CHLORIDE 20 MEQ POWDER PACKET PO SCH (09:38)
[2020-09-28] MEDS: CARBIDOPA/LEVODOPA 25-100MG TABLET PO SCH ×2 (09:39→13:59)
[2020-09-28] MEDS: CHOLECALCIFEROL 1,000 UNIT TABLET PO SCH (09:39)
[2020-09-28] MEDS: CLOTRIMAZOLE 10 MG TROCHE MM SCH ×2 (09:39→13:59)
[2020-09-28] MEDS: FLUDROCORTISONE ACETATE 0.1 MG TABLET PO SCH (09:39)
[2020-09-28] MEDS: PROTEIN SUPPLEMENT (PROSTAT) 30 ML LIQUID PO SCH (09:40)
[2020-09-28 12:00] VITALS: BP 132/60
[2020-09-28] MEDS ORDERED: HYDR-4384 PO (12:09)
[2020-09-28] MEDS ORDERED: POLY17PO4 PO (12:09)
[2020-09-28] MEDS ORDERED: MULT-594 PO (12:09)
[2020-09-28] MEDS ORDERED: CHOL10002 PO (12:09)
[2020-09-28] MEDS ORDERED: PROT30LI PO (12:09)
[2020-09-28] MEDS ORDERED: CLOT10TR6 MM (12:09)
[2020-09-28] MEDS ORDERED: ACET325T53 PO (12:09)
[2020-09-28] MEDS ORDERED: DOCU100C36 PO (12:09)
[2020-09-28] MEDS ORDERED: METO25TA6 PO (12:09)
[2020-09-28] MEDS ORDERED: BISA10SU12 RC (12:09)
--- NOTE | 2020-09-28 15:12 | NUR ---
DC report given to Kunal from [facility]
--- NOTE | 2020-09-28 15:52 | NUR ---
Gave DC forms and instructions to Luis Carlos
--- NOTE | 2020-09-28 16:00 | NUR ---
Patient DC via ambulance AOx1, confused awake on 2L NC saturating 97-98%, no SOB or distress at this time. IV on left FA removed, no s/s of bleeding noted. DC forms and instructions given to EMT personnel. Belongings list all accounted for sent with patient. Report given to Dewayne CHOWDARY from [facility].
== END 2020-09-28 16:00 | DRG 177 ==
LOC: ER 16:20 → TELE3 21:37 → MEDSURG3 09-23 22:55
PROVIDERS: ADMIT Nurse Practitioner Acute Care; ATTEND Internal Medicine
PROC: XW033E5 Introduction of Remdesivir Anti-infective into Peripheral Vein, Percutaneous Approach, New Technology Group 5 (ICD-10-PCS; principal; 2020-09-18)
DX: U07.1 COVID-19 (principal); J12.89 Other viral pneumonia; J96.01 Acute respiratory failure with hypoxia; G92 Toxic encephalopathy; E43 Unspecified severe protein-calorie malnutrition; D68.59 Other primary thrombophilia; K92.2 Gastrointestinal hemorrhage, unspecified; B37.0 Candidal stomatitis; G20 Parkinson's disease; F02.80 Dementia in other diseases classified elsewhere, unspecified severity, without behavioral disturbance, psychotic disturbance, mood disturbance, and anxiety; R79.89 Other specified abnormal findings of blood chemistry; D50.9 Iron deficiency anemia, unspecified; Z74.09 Other reduced mobility; D72.819 Decreased white blood cell count, unspecified; E05.90 Thyrotoxicosis, unspecified without thyrotoxic crisis or storm; M19.90 Unspecified osteoarthritis, unspecified site; I25.10 Atherosclerotic heart disease of native coronary artery without angina pectoris; I70.0 Atherosclerosis of aorta; I48.0 Paroxysmal atrial fibrillation
CPT/HCPCS: 36415; 70030-TC; 71045; 83550; 83605; 83615; 83735; 84100; 84443; 84481; 85025; 85610; 85730; 86140; 87040; 87400; 93005; A4663; G0378; J0456; J0696; J1100; J1650; J2060; J3475; J3490; J7030; J7040; J7050; J7060